=== PATIENT | male | born 1945 | race Caucasian/White ===

== ENCOUNTER 2017-05-21 06:55 | Day surgery (SDC) | payer MEDICARE, OTHER ==
[~2017-05-21] VITALS: Ht 190.5 cm; Wt 113.4 kg
[~2017-05-21 06:55] MED LIST: ALDACTONE25 MG PO; AMARYL2 MG PO; ANTIVERT25 MG PO; AZITHROMYCIN250 MG PO; BETAPACE AF80 MG PO; CALCITRIOL0.25 MCG PO; CITALOPRAM HBR20 MG PO; COREG CR40 MG PO; COUMADIN2.5 MG PO; COUMADIN5 M1 IV; COUMADIN5 MG; CRESTOR10 MG PO; CRESTOR20 MG PO; DEMADEX20 MG PO; DIOVAN HCT 3201 EACH PO; DIOVAN320 MG PO; DIOVAN40 MG PO; DIOVAN80 MG PO; ELIQUIS5 MG PO; FINASTERIDE5 MG PO; GUAIFENESIN-CO118 ML PO; HYDROCODON-ACE1 EA10 PO; LEVAQUIN500 MG PO; LEVAQUIN750 MG PO; MECLIZINE HCL25 MG PO; METOPROLOL TAR100 MG PO; NIFEDICAL XL30 MG PO; NIFEDIPINE ER90 M1 PO; NITROGLYCERIN0.4 MG SL; NORCO 5-325 TA1 EACH PO; NORCO 7.5-3251 EACH PO; OMEPRAZOLE20 MG PO; OXYCODONE HCL5 MG PO; POTASSIUM CHLO10 MEQ PO; PREDNISONE20 MG PO; PRILOSEC20 MG PO; PROMETHAZINE HC25 M1 PO; PROMETHAZINE-COD5 ML PO; QVAR7.3 G1 INH; SERTRALINE HCL50 MG PO; SOTALOL AF120 MG PO; SOTALOL80 M1 PO; SPIRONOLACTONE25 MG PO; TORSEMIDE20 MG; VITAMIN B-121000 MCG PO; XARELTO20 MG PO; ZITHROMAX250 MG PO; ZOFRAN4 MG PO
--- NOTE | 2017-05-21 08:25 | NUR ---
05/21/17 0825 Radha Rodriguez REPORT FROM [employer] SET UP OPERATOR.
--- NOTE | 2017-05-21 14:55 | NUR ---
PT IN FOR ROUTINE. HAS HAD NUMEROUS SCOPES BEFORE. WAS VERY RELAXED, RN CONCERNED THOUGH THAT SHE COULDN'T GET HIS IV SALINE TO RUN FAST ENOUGH. RN CLARISSA CHECKED SEVERAL TIMES. PT REQUESTED PRAYER, WILL FOLLOW NEEDED
--- NOTE | 2017-06-05 10:25 | OR ---
[facility] [address] [place], [place] [address] Signed DATE OF SERVICE: 05/21/2017 PREOPERATIVE DIAGNOSIS: Rectal bleeding. Multiple medical problems, including chronic anticoagulation with Eliquis for occult cerebrovascular accident x2. POSTOPERATIVE DIAGNOSIS: Extensive internal hemorrhoids. Polyps x4. PROCEDURE: Total colonoscopy to cecum with hot snare polypectomy x2. Cold snare polypectomy x1 and cold morcellation polypectomy x1. SURGEON: Veronica Aquino MD. ANESTHESIA: Intravenous sedation with propofol infusion, Veronica Anthony CRNA. PREOPERATIVE MEDICATIONS: Cefoxitin 2 g. INDICATION: This 70-year-old white man has a considerable number of medical problems. He is a patient of Dr. Rey. He has had rectal bleeding. He is chronically anticoagulated with Eliquis, having had 2 cerebrovascular accidents of unknown etiology and anti-coagulated on that basis. Additionally, he has had a right hip replacement. He has had left nephrectomy for neoplasm and has other medical problems. He is considered ASA class 4. He is admitted to undergo colonoscopy to better characterize the source of h is bleeding. He understands risks of bleeding, infection, and perforation related to colonoscopy and wished to proceed. FINDINGS: The prep was excellent. Complete colonoscopy was undertaken to the cecum. 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 There were 4 polyps in total, 2 in the cecum, 1 in the ascending colon, another in the transverse colon, all excised. The source of his bleeding almost certainly is significant internal hemorrhoidal changes. There is no sign of active bleeding at this time. PROCEDURE: The patient was brought to the endoscopy suite and placed in lateral decubitus position. Given intravenous propofol infusional sedation by the tieing machine operator with full cardiopulmonary monitoring. Underwent preoperative treatment with cefoxitin antibiotic. Digital rectal examination was normal. Electronically Signed By: VERONICA AQUINO MD 06/05/17 1025 PATIENT NAME: ANDREE DUNAWAY OPERATIVE REPORT DATE OF : 41 PHYSICIAN: VERONICA AQUINO MD REPORT #: [id number] REPORT IS CONFIDENTIAL AND NOT TO BE RELEASED WITHOUT AUTHORIZATION [facility] [address] [place], [place] [address] Signed An Olympus video colonoscope was passed in the rectum and manipulated throughout the colon noting a very good bowel prep. The scope was advanced to the cecum, where a prominent ileocecal valve was noted. 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 Full examination of the cecum showed 2 small polyps, they were 1 larger than the other both at least 5 mm in size. T h e smaller was excised with hot snare polypectomy technique as was the larger. Both were removed. Withdrawal of scope showed another mid ascending polyp about the same size, this 1 about a cm. As one of the polyps was being from the cecum, it was being pulled along through a Matias net. This polyp was grasped with the net and gently excised with no significant bleeding. The scope was withdrawn further and ultimately removed and the 2 polyps offloaded. Then another small polyp of the cecum had already been brought through the channel of the scope. The scope was reintroduced and passed ultimately to the cecum again, where the polypectomy site appeared to be hemostatic. Upon withdrawal of scope, in the mid transverse colon, there was a small polyp. This was excised with cold morcellation technique without problem. The remaining colon was reexamined once again showing no sign of polyps but retroflexed in the rectum confirmed sizable internal hemorrhoids. There was no sign of bleeding. The scope was removed. The patient was taken recovery in good condition. He tolerated the procedure well though he did have some bigeminy arrhythmia during the case without hemodynamic compromise. CONCLUDING DIAGNOSES: Polyps x4 all excised. Internal hemorrhoids. This represents most likely sources of his bleeding. PLAN: Recommend restarting Eliquis only after 6 days. He can continue with aspirin 81 mg a day in the meantime. We recommend Citrucel 1 tablespoon p.o. daily and bowel hygiene to include avoidance of prolonged sitting on the commode so as to diminish inner rectal pressure. If continued bleeding is noted, a surgical remedy may be required for his hemorrhoids. MD SCOTT Manzo/Lacho /[id number] Electronically Signed By: VERONICA AQUINO MD 06/05/17 1025 PATIENT NAME: ANDREE DUNAWAY OPERATIVE REPORT DATE OF : 41 PHYSICIAN: VERONICA AQUINO MD REPORT #: [id number] REPORT IS CONFIDENTIAL AND NOT TO BE RELEASED WITHOUT AUTHORIZATION [address] [address] Signed cc: Dr. Aniceto Rey Electronically Signed By: VERONICA AQUINO MD 06/05/17 1025 PATIENT NAME: ANDREE DUNAWAY OPERATIVE REPORT DATE OF : 41 PHYSICIAN: VERONICA AQUINO MD REPORT #: [id number] REPORT IS CONFIDENTIAL AND NOT TO BE RELEASED WITHOUT AUTHORIZATION
== END 2017-05-21 10:05 | disposition home or self-care (01) ==
LOC: OPS 06:55 → DS 06:55 → OPS 08:15 → DS 09:00 → OPS 09:00
PROVIDERS: Surgery
PROC: 0DBK8ZX Excision of Ascending Colon, Via Natural or Artificial Opening Endoscopic, Diagnostic (ICD-10-PCS; 2017-05-21)
PROC: 0DBL8ZX Excision of Transverse Colon, Via Natural or Artificial Opening Endoscopic, Diagnostic (ICD-10-PCS; 2017-05-21)
PROC: 0DBH8ZX Excision of Cecum, Via Natural or Artificial Opening Endoscopic, Diagnostic (ICD-10-PCS; principal; 2017-05-21 08:15)
DX: D12.0 Benign neoplasm of cecum (principal); D12.2 Benign neoplasm of ascending colon; D12.3 Benign neoplasm of transverse colon; K64.8 Other hemorrhoids; F32.9 Major depressive disorder, single episode, unspecified; E11.9 Type 2 diabetes mellitus without complications; I10 Essential (primary) hypertension; I48.91 Unspecified atrial fibrillation; G47.30 Sleep apnea, unspecified; Z86.010 Personal history of colon polyps; Z88.0 Allergy status to penicillin; Z88.2 Allergy status to sulfonamides; Z88.5 Allergy status to narcotic agent; Z87.891 Personal history of nicotine dependence; Z90.49 Acquired absence of other specified parts of digestive tract; Z96.653 Presence of artificial knee joint, bilateral; Z96.642 Presence of left artificial hip joint; Z90.5 Acquired absence of kidney; Z98.890 Other specified postprocedural states; Z79.899 Other long term (current) drug therapy; Z86.73 Personal history of transient ischemic attack (TIA), and cerebral infarction without residual deficits
CPT/HCPCS: 00810; 88305; J0694; J2704; J7120

== ENCOUNTER 2017-06-22 17:24 | Emergency (ER) | payer MEDICARE, OTHER ==
[~2017-06-22] VITALS: Ht 190.5 cm; Wt 113.4 kg
== END 2017-06-22 18:41 | disposition home or self-care (01) ==
LOC: ED 17:24
DX: S90.32XA Contusion of left foot, initial encounter (principal); I50.9 Heart failure, unspecified; Z85.528 Personal history of other malignant neoplasm of kidney; Z86.73 Personal history of transient ischemic attack (TIA), and cerebral infarction without residual deficits; Z87.891 Personal history of nicotine dependence; Z90.5 Acquired absence of kidney; Z90.49 Acquired absence of other specified parts of digestive tract; Z96.651 Presence of right artificial knee joint; Z88.0 Allergy status to penicillin; Z88.2 Allergy status to sulfonamides; Z88.1 Allergy status to other antibiotic agents; Z79.899 Other long term (current) drug therapy; Z79.84 Long term (current) use of oral hypoglycemic drugs; W22.8XXA Striking against or struck by other objects, initial encounter
CPT/HCPCS: 73610; 73630; 99283

== ENCOUNTER 2017-09-18 14:04 | Emergency (ER) | payer MEDICARE, OTHER ==
[~2017-09-18] VITALS: Ht 190.5 cm; Wt 113.4 kg
[2017-09-18] MEDS ORDERED: CARVEDILOL25 MG PO (14:30)
[2017-09-18] MEDS ORDERED: FUROSEMIDE40 MG PO (16:24)
[2017-09-18] MEDS ORDERED: KLOR-CON M2020 MEQ PO (16:24)
== END 2017-09-18 16:40 | disposition home or self-care (01) ==
LOC: ED 14:04
DX: I50.9 Heart failure, unspecified (principal); Z86.73 Personal history of transient ischemic attack (TIA), and cerebral infarction without residual deficits; Z90.5 Acquired absence of kidney; Z88.0 Allergy status to penicillin; Z88.2 Allergy status to sulfonamides; Z88.1 Allergy status to other antibiotic agents; Z85.528 Personal history of other malignant neoplasm of kidney; Z96.651 Presence of right artificial knee joint; Z79.899 Other long term (current) drug therapy; Z95.818 Presence of other cardiac implants and grafts
CPT/HCPCS: 71020; 80053; 83880; 85025; 99283

== ENCOUNTER 2017-11-21 00:52 | Observation (INO) | payer MEDICARE, OTHER ==
[~2017-11-21] VITALS: Ht 190.5 cm; Wt 115.7 kg
[~2017-11-21 00:52] MED LIST changes: +CARVEDILOL25 MG PO; +FUROSEMIDE40 MG PO; +KLOR-CON M2020 MEQ PO
[2017-11-21] MEDS ORDERED: CLEOCIN HCL150 MG PO (01:12)
[2017-11-21] MEDS ORDERED: FUROSEMIDE20 MG PO (01:13)
[2017-11-21] MEDS ORDERED: NITROGLYCERIN0.4 MG SL (01:14)
[2017-11-21] MEDS ORDERED: PROMETHAZINE-C118 ML PO (01:15)
[2017-11-21] MEDS ORDERED: SPIRONOLACTONE25 MG PO (01:17)
[2017-11-21] MEDS ORDERED: VALACYCLOVIR1000 MG PO (01:43)
[2017-11-21] MEDS ORDERED: TORSEMIDE20 MG PO (01:43)
--- NOTE | 2017-11-21 05:12 | NUR ---
PT ARRIVED TO ROOM 129 AT 0405. VERY DROWSY, RESPONDS TO TACTILE STIMULI ONLY. FLOSSY AT BEDSIDE TO PROVIDE PT H&P. DR SHRESTHA CALLED ON ADMIT TO UPDATE RE: PT BP/VS. CARDENE GTT STARTED AT 0432 AT 5MG/HR. PT VOMITED UPON ARRIVAL. CLEAR GREEN LIQUID, APPROXIMATELY 300ML. UP TO STAND AT BEDSIDE TO VOID NOW. UNSTEADY ON FEET. MISSED URINAL AND VOIDED ON PANTS AND FLOOR. SMALL/MED AMOUNT. O2 ON 2L NC. PT WITH INTERMITTENT APNEIC PERIODS. REPORTS PT ALSO HAS SLEEP APNEA. NON COMPLIANT WITH CPAP AT HOME. ALSO UNAWARE IF PT TAKING MEDICATIONS PRESCRIBED. PT WITH RECENT COLD, ALSO RECENT DIARRHEA EPISODE ON .
--- NOTE | 2017-11-21 06:35 | NUR ---
PT GTT DECREASED TO 2.5MG/HR AT 0600.
--- NOTE | 2017-11-21 07:21 | NUR ---
CARDENE GTT DECREASED TO 1.5MG/HR
--- NOTE | 2017-11-21 07:50 | NUR ---
UPON ENTERING ROOM, PATIENT IS ASLEEP. IS IN ROOM. PATIENT WOKE BRIEFLY, DENIES PAIN. IS W/O C/O NAUSEA. CARDINE GTT REMAINS AT 1.5 MG. SEE MONITOR PRINT OUT SHEET FOR FREQUENT VITAL SIGNS.
--- NOTE | 2017-11-21 08:50 | NUR ---
NICARDIPINE GTT TO OFF. PATIENT REMAINS AT BEDSIDE.
--- NOTE | 2017-11-21 10:45 | NUR ---
TOOK SNACK WELL. WILL DO ACCUCHEKS BEFORE LUNCH. DENIES PAIN. ROUTINE MEDS GIVEN. BP-131/65. RESTFUL.
--- NOTE | 2017-11-21 11:04 | NUR ---
SLEEPING, HOB ELEVATED. NO DISTRESS NOTED.
--- NOTE | 2017-11-21 13:05 | NUR ---
TYLENOL 500 MG PO GIVEN FOR HEADACHE.
--- NOTE | 2017-11-21 15:30 | NUR ---
PATIENT WISHES TO SIT IN CHAIR. ASSISTED PATIENT TO SIT AT BEDSIDE. IS VERY WEAK ATTEMPTED TO STAND, UNABLE. BACK TO BED. WHEN SITTING AT BEDSIDE NEEDED ASSIST OF 2 PEOPLE.
--- NOTE | 2017-11-21 16:15 | NUR ---
C/O INCREASE BURNETT PAIN. DR. SHRESTHA NOTIFIED. ORDERS RECIEVED.
--- NOTE | 2017-11-21 16:20 | NUR ---
TYLENOL 500 MG PO GIVEN, LR BOLUS 1000 ML HUNG.
--- NOTE | 2017-11-21 16:49 | NUR ---
CONTINUE TO C/O SEVERE HEADACHE. DAMP RAG APPLIED TO FOREHEAD.
--- NOTE | 2017-11-21 17:00 | NUR ---
STATES HE FEELS ALITTLE BETTER. ACCUCHECK 73. APPLE JUICE GIVEN. HAS BEEN USING URINAL WITH ASSIST TO VOID BETWEEN 125-150 ML OF URINE AT A TIME. DENIES PAINFUL URINATION.
--- NOTE | 2017-11-21 17:03 | NUR ---
URINE IS CONCENTRATED
--- NOTE | 2017-11-21 19:56 | NUR ---
PT RESTING WITH EYES CLOSED. REPORTS H/A LESS, NAUSEA GONE. VOIDED 200ML TO URINAL. BLADDER SCANNED POST VOID FOR 167ML. OFFERED 7-UP AND ICE CHIPS. REMAINS AT BEDSIDE. PT INSTRUCTED TO USE CALL LIGHT FOR ASSISTANCE.
--- NOTE | 2017-11-21 22:22 | NUR ---
UPDATED DR SHRESTHA RE: PT U/O AND FREQUENCY/BLADDER SCAN RESULTS, BP, BLOOD SUGAR.
--- NOTE | 2017-11-22 04:15 | NUR ---
PT USED CALL LIGHT FOR ASSISTANCE TO VOID. VOIDED 100ML TO URINAL. NEW IV PLACED IN LW. PT REPORTS FEELING BETTER. NO NAUSEA. NO H/A. EATING JELLO AND CRACKERS.
--- NOTE | 2017-11-22 09:00 | NUR ---
DR. SHRESTHA HERE TO SEE PATIENT. DISCHARGE ORDERS RECIEVED. TOOK BREAKFAST WELL.
[2017-11-22] MEDS ORDERED: POTASSIUM CHLO20 ME1 PO (09:50)
--- NOTE | 2017-11-22 10:20 | NUR ---
AMBULATED IN SOLIS. NURSE WITH PATIENT. PATIENT USING WALKER. TOLERATED WELL. DENIES DIZZINESS OR BURNETT. THEN TO CHAIR.
--- NOTE | 2017-11-22 12:00 | NUR ---
discharge instructions given with patient and patient understanding. TAKING LUNCH PRIOR TO DISCHARGE.
--- NOTE | 2017-11-22 12:10 | NUR ---
UPON STANDING TO AMBULATE TO W/C FOR DISCHARGE, PATIENT IS WITH DIZZINESS AND SOMEWHAT UNSTEADY ON FEET. ASSISTED TO CHAIR. BP-127/77. TALKED WITH PATIENT ABOUT NEED TO MOVE SLOW WHEN STANDING AND WALKING.
--- NOTE | 2017-11-22 14:01 | NUR ---
PT WAS DRESSED AND WAITNG FOR HIS TO COME AND PICK HIM UP. HE HAS BEEN DC'D. HE ADMITTED THAT HE WAS SCARED THIS PAST WEEKEND. PAIN WAS VERY INTENSE AND HE WAS AFRAID HE HAD HAD A STROKE. SEEMS CLEAR, HAD GOOD VISIT WITH PT-HE REQUESTED PRAYER. WILL FOLLOW NEEDED
--- NOTE | 2017-11-22 21:21 | EKG ---
[facility] [address] [facility] [place] [address] Signed Atrial fibrillation with premature ventricular or aberrantly conducted complexes Right bundle branch block Abnormal ECG No previous ECGs available Confirmed by HENRY SHRESTHA MD ([id number]) on 11/22/2017 9:21:08 PM Electronically Signed By: HENRY SHRESTHA MD 11/22/172120 PATIENT NAME: ANDREE DUNAWAY MIGUEL Electrocardiogram DATE OF : 41 PHYSICIAN: HENRY SHRESTHA MD REPORT #: [id number] REPORT IS CONFIDENTIAL AND NOT TO BE RELEASED WITHOUT AUTHORIZATION
== END 2017-11-22 12:35 | disposition home or self-care (01) ==
LOC: ED 00:52 → CCU 00:53
PROVIDERS: ADMIT Internal Medicine
DX: I16.0 Hypertensive urgency (principal); I50.32 Chronic diastolic (congestive) heart failure; I13.0 Hypertensive heart and chronic kidney disease with heart failure and stage 1 through stage 4 chronic kidney disease, or unspecified chronic kidney disease; N18.3 Chronic kidney disease, stage 3 (moderate); I48.2 Chronic atrial fibrillation; N40.0 Benign prostatic hyperplasia without lower urinary tract symptoms; I25.10 Atherosclerotic heart disease of native coronary artery without angina pectoris; E78.5 Hyperlipidemia, unspecified; K21.9 Gastro-esophageal reflux disease without esophagitis; F39 Unspecified mood [affective] disorder; Z88.1 Allergy status to other antibiotic agents; Z95.5 Presence of coronary angioplasty implant and graft; Z88.0 Allergy status to penicillin; Z88.2 Allergy status to sulfonamides; Z79.2 Long term (current) use of antibiotics; Z79.84 Long term (current) use of oral hypoglycemic drugs; Z79.02 Long term (current) use of antithrombotics/antiplatelets; Z79.899 Other long term (current) drug therapy; Z86.73 Personal history of transient ischemic attack (TIA), and cerebral infarction without residual deficits; Z85.528 Personal history of other malignant neoplasm of kidney; Z90.5 Acquired absence of kidney
CPT/HCPCS: 51798; 70450; 80053; 81001; 83735; 85025; 93005; 93010; 96361; 96365; 96366; 96374; 96375; 99285; G0378; J1200; J2270; J2405; J2550; J2765; J7030; J7120

== ENCOUNTER 2018-08-02 20:49 | Inpatient (IN) | payer MEDICARE, OTHER ==
[~2018-08-02] VITALS: Ht 190.5 cm; Wt 116.3 kg
[~2018-08-02 20:49] MED LIST changes: +ABILIFY5 MG PO; +CLEOCIN HCL150 MG PO; +COZAAR100 MG PO; +FUROSEMIDE20 MG PO; +HYDRALAZINE HCL25 MG PO; +POTASSIUM CHLO20 ME1 PO; +PROMETHAZINE-C118 ML PO; +TORSEMIDE20 MG PO; +TORSEMIDE5 MG PO; +VALACYCLOVIR1000 MG PO
--- NOTE | 2018-08-02 23:30 | NUR ---
PT TO THE FLOOR. PT AMBULATED FROM STRETCHER TO BED. ACCOMPANIED BY FAMILY MEMBER. PT AOX4, APPROPRIATE, CALM. ON 2LNC. PT DENIES ANY SOB/CP. EXP. WHEEZES NOTED IN ALL LUNG SOUNDS. FAINT CRACKLES IN BASES. UPPER AIRWAY CONGESTION W/ OCCASIONAL WET COUGH. SPUTUM THICK, YELLOW. BT ACTIVE, ABD NONTENDER. HEART SOUNDS REGULAR. PT STATES THAT HE IS FEELING WARM. COLD WASH CLOTH PLACED ON HEAD FOR COMFORT. T: 98.2. VSS. IV SL. QUESTIONS ANSWERED. PT ORIENTED TO ROOM. FALL PRECAUTIONS IN PLACE. FAMILY REMAINS IN ROOM. CALL LIGHT WITHIN REACH. NO REQUESTS AT THIS TIME.
--- NOTE | 2018-08-03 01:00 | NUR ---
PT STATES HE IS FEELING NAUSEOUS. ACTIVELY VOMITING X3. MD CALLED FOR ANTINAUSEA MEDICATION. NEW ORDERS. SEE EMAR. PRN NAUSEA MEDICATION GIVEN. PT TOLERATED WELL. PT SLEPING NOW. CALL LIGHT WITHIN REACH. NO NEEDS AT THIS TIME.
--- NOTE | 2018-08-03 03:00 | NUR ---
PT RESTING IN BED. LS EXP WHEEZES, CONGESTED UPPER AIRWAY, CONGESTED OCCASIONAL COUGH PRESENT. PT DENIES SOB/CP. DENIES ANY PAIN. DENIES N/V. STATES HE FEELS MUCH BETTER. BT ACTIVE. ABD NONTENDER, PULSES EQUAL BILATERALLY. AOX4, APPROPRIATE. NO NEEDS AT THIS TIME. CALL LIGHT WITHIN REACH. FALL PRECAUTIONS IN PLACE. O2 @ 2LNC, IV RUNNING WNL.
--- NOTE | 2018-08-03 05:31 | NUR ---
PT CAME TO FLOOR LAST NIGHT AFTER FEELING NAUSEOUS AND VOMITING IN ED. WITH ELEVATED TEMP. PT AFEBRILE, T: 98.6, ON 2LNC DENIES SOB/CP. LS EXP. WHEEZES, UPPER AIRWAY CONGESTION, THICK YELLOW SPUTUM NOTED W/OCCASIONAL COUGH. RT NEB TREATMENTS. PT DID HAVE 1 EPISODE OF N/V. PRN IV NAUSEA MEDS GIVEN. NO NAUSEA SINCE THEN. NO PAIN. ABD NONTENDER. NO BM THIS SHIFT. PT AOX4, PLEASANT. BURLESON IN PLACE. URINE OUTPUT QS.
--- NOTE | 2018-08-03 06:55 | NUR ---
IN ROOM TO ADMIN MORNING ABX. PT OUT OF BED FOR DAILY WEIGHT. TOLERATED STANDING AT BEDSIDE WELL. NO C/O DIZZINESS OR LIGHT HEADEDNESS. DENIES ANY PAIN. DENIES SOB. CALL LIGHT WITHIN REACH. NO NEEDS AT THIS TIME.
--- NOTE | 2018-08-03 07:01 | NUR ---
RECIEVED REPORT FROM ELIZABETH ADAMS. PT SLEEPING AT THIS TIME. 2L OXYGEN NC. IVF AND ABX INFUSING AT THIS TIME. BURLESON IN PLACE. ADA, 1800 MAR DIET.
--- NOTE | 2018-08-03 08:20 | NUR ---
ASSESSMENT COMPLETE. EXPIRATORY WHEEZE AND RHONCHI THROUGHOUT ALL LOBES. 2 L OXYGEN VIA NC, SATURATIONS WNL. IVF AND ABX INFUSING WNL. IV SITES FLUSH WELL.RT IN ROOM, BREATHING TX ADMINISTERED. PT REPORTS PRODUCTIVE COUGH WITH BROWNISH SPUTUM. BURLESON DRAINING CONCENTRATED URINE. MORNING MEDICATIONS ADMINISTERED. ICE WATER AND BLANKET GIVEN PER PT REQUEST. CALL LIGHT NEXT TO PT. PT AFEBRILE THIS MORNING.
--- NOTE | 2018-08-03 09:14 | NUR ---
PATIENT RESTING IN BED. ICE WATER GIVEN. CALL LIGHT WITHIN REACH. NO OTHER NEEDS AT THIS TIME.
--- NOTE | 2018-08-03 10:38 | NUR ---
IV BOLUS INFUSING AT THIS TIME. PT LAYING IN BED AWAKE. NO REQUESTS AT THIS TIME. CALL LIGHT NEXT TO PT.
--- NOTE | 2018-08-03 10:41 | NUR ---
Mendez drained, 50 ml unrine, yellow, no odor or cloudyness noted. Mendez balloon deflated, 10 ml fluid from peteron, pt denies pain, mendez catheter ANUJA'd. RN present for this intervention.
--- NOTE | 2018-08-03 12:44 | NUR ---
PT REQUESTED TYLENOL FOR BODY ACHES. DR. MORFIN CALLED, TELEPHONE ORDER RECIEVED FOR PRN PAIN MEDICATION, REPEATED BACK.
--- NOTE | 2018-08-03 12:53 | NUR ---
IN ROOM TO ADMINISTER PRN PAIN MEDICATIONS FOR 5/10 BODY ACHES. ASSESSMENT COMPLETE. EXPIRATORY WHEEZE AND RHONCHI THROUGHOUT ALL LOBES. 2 L OXYGEN VIA NC, SATURATIOINS WNL. NO REQUESTS AT THIS TIME. WATER AT BEDSIDE, INF INFUSING WNL. CALL LIGHT NEXT TO PT.
--- NOTE | 2018-08-03 13:14 | NUR ---
PATIENT RESTING IN BED. FAMILY IN ROOM. VITALS AND I&O DONE. ICE WATER GIVEN. O OTHER NEEDS AT THIS TIME.
--- NOTE | 2018-08-03 13:46 | NUR ---
IN ROOM TO BLADDER SCAN PT, 52 ML. PT ENCOURAGED PO INTAKE. WATER AT BEDSIDE. CALL LIGHT NEXT TO PT.
--- NOTE | 2018-08-03 14:30 | NUR ---
PT SITTING IN BED, ROSA ELENA DISCOURAGED HE IS HERE. HE STATED PNEU. SEEMS TO PLAGUE HIM. GOOD DISCUSSION, OFFERED G.POST MAG AND OFFERED A PRAYER. WILL FOLLOW NEEDED
--- NOTE | 2018-08-03 14:49 | EKG ---
[facility] [address] [facility] [place], [place] [address] Signed Atrial fibrillation with a competing junctional pacemaker Right bundle branch block Abnormal ECG When compared with ECG of 21-NOV-2017 02:10, Questionable change in QRS axis Confirmed by FIONA MORFIN DO ([id number]) on 08/03/2018 2:49:10 PM Electronically Signed By: FIONA MORFIN DO 08/03/18 1449 PATIENT NAME: ANDREE DUNAWAY Electrocardiogram DATE OF : 41 PHYSICIAN: FIONA MORFIN DO REPORT #: [id number] REPORT IS CONFIDENTIAL AND NOT TO BE RELEASED WITHOUT AUTHORIZATION
--- NOTE | 2018-08-03 15:22 | NUR ---
IN ROOM TO ADMINISTER ABX. PT AWAKE LAYING IN BED. WHEN ASKED HOW HE FELT, HE STATED, "HES FELT BETTER". ABX INFUSING WNL. PT BOOSTED UP IN HIS BED. ICE WATER AT BEDSIDE.
[2018-08-03] MEDS ORDERED: DEMADEX20 MG PO (16:22)
--- NOTE | 2018-08-03 16:23 | NUR ---
Medications reconciled using pharmacy records and patient interview
--- NOTE | 2018-08-03 16:39 | NUR ---
IN ROOM TO COMPLETE ASSESSMENT. SATURATIONS WNL ON 1 L NC. EXPIRATORY WHEEZE AND RHONCHI THROUGHOUT ALL LOBES. CORNET AND IS AT BEDSIDE. IV ABX INFUSING WNL. NO NEEDS AT THIS TIME, CALL LIGHT NEXT TO PT.
--- NOTE | 2018-08-03 17:46 | NUR ---
PATIENT RESTING IN BED. IN ROOM. VITALS AND I&O DONE. PATIENT COMPLAINS ABOUT HEADACHE AND COLD. HIGH RESPIRATIONS AND LOW OXIGEN. RN NOTIFIED. CALL LIGHT WITHIN REACH. NO OTHER NEEDS AT TIME.
--- NOTE | 2018-08-03 18:06 | NUR ---
PT HAD EXP WHEEZES THROUGHOUT SHIFT. 1-2 LITERS NC, CONTINUOUS PULSE OX. ALERT AND ORIENTED X4 THROUGHOUT SHIFT. BURLESON D/C. OLIGURIC THROUGHOUT SHIFT. ENCOURAGED PO FLUIDS, BOLUS X2 ADMINISTERED. ABX ADMINISTERED SCHEDULED. AFEBRILE THROUGHOUT SHIFT. 1-2 SBA WITH AMBULATION. 2 IV SITES, ABX INFUSING AT THIS TIME. USES CALL LIGHT APPROPRIATELY. PRN PAIN MEDICATIONS ADMINISTERED X1. ADA, 1800 CALORIE DIET.
--- NOTE | 2018-08-03 18:33 | NUR ---
MD NOTIFIED OF PTS TEMP 100.6, TACHYPNIC AT 28 BPM, PT NOT FEELING WELL. PRN TYLENOL ADMINISTERED. NO NEW ORDERS AT THIS TIME.
--- NOTE | 2018-08-03 18:50 | NUR ---
IN ROOM TO CHECK ON PT. PT STATES "HE FEELS WORSE THAN YESTERDAY". COOL CLOTH GIVEN TO PT. CALL LIGHT NEXT TO PT.
--- NOTE | 2018-08-03 19:05 | NUR ---
PT APPEARS TO BE SLEEPING IN BED. ON 2LNC, O2 SAT 93%, HR 77. NO NEEDS AT THIS TIME. CALL LIGHT WITHIN REACH.
--- NOTE | 2018-08-03 19:40 | NUR ---
CALL LIGHT ANSWERED, IV CEFEPIME INFUSION COMPLETE, IV SALINE LOCKED WNL, GOOD BLOOD RETURN. PT ASSISTED TO REPOSITION WITH 2 RN ASSIST. BREATHING LABORED, SPO2 WNL ON 2L OXYGEN BY NC. PT ENCOURAGED TO DRINK WATER, USE IS. CALL LIGHT IN REACH.
--- NOTE | 2018-08-03 21:14 | NUR ---
MD NOTIFIED OF PT'S C/O RESTLESSNESS WELL BACK PAIN AND INABILITY TO SLEEP. PT REMAINS AFEBRILE T: 98.4, RR: 26, PT'S URINE OUTPUT 55 MLS IN LAST THREE HOURS, MD NOTIFIED. PT REMAINS ON 2LNC WITH O2 SAT AT 94%. PT STATES HE TAKES TYLENOL WITH CODEINE AT HOME FOR CHRONIC BACK PAIN WELL MELATONIN FOR SLEEP. MD NOTIFIED. NEW ORDERS RECIEVED. PT RESTING IN BED. CALL LIGHT WITHIN REACH.
--- NOTE | 2018-08-03 21:36 | NUR ---
IN ROOM TO ADMIN EVENING MEDS. SHIFT ASSESSMENT COMPLETE. PT AOX4, PLEASANT. PT STATES THAT HE HAS BEEN FEELING RESTLESS, IS HAVING BACK PAIN OF 8/10. PT GIVEN PRN PAIN MEDICATION PER EMAR. PT ALSO GIVEN PRN MELATONIN FOR SLEEP. PT'S LS COURSE WITH WHEEZES THROUGHOUT. ON 2LNC. O2 SAT 93%. DENIES SOB/CP. BT ACTIVE, ABD NONTENDER. PT STATES HE DID HAVE A BM EARLIER TODAY. NO C/O N/V/D. HEART SOUNDS REGULAR. VSS. PULSES EQUAL THROUGHOUT. PT AMBULATED FROM BED TO BSC AND BACK AGAIN WITH 1 PERSON PIVOT. PT A LITTLE UNSTEADY ON HIS FEET. SLOW TO FOLLOW DIRECTIONS. DENIES LIGHT HEADEDNESS OR DIZZINESS WITH STANDING. NO NEEDS AT THIS TIME. HYDRATION AT BEDSIDE. CALL LIGHT WITHIN REACH. URINAL AT BEDSIDE.
--- NOTE | 2018-08-03 22:02 | NUR ---
ROUNDED CHARGE. PATIENT MOVED TO NEW HOSPITAL BED FOR COMFORT. PATIENT DENIES ANY COMMNETS, QUESTIONS, OR CONCERNS. NO NEEDS NOTED. RN IN ROOM. CALL LIGHT IN REACH.
--- NOTE | 2018-08-03 22:48 | NUR ---
IN PT ROOM FOR IV ANTIBIOTIC ADMINISTRATION, PT RATES PAIN 4/10 IN BACK AND HEAD, RESTING IN BED, SPO2 WNL ON 2L OXYGEN BY NC. NO REQUESTS AT THIS TIME, PO FLUIDS IN REACH, CALL LIGHT NEXT TO PT.
--- NOTE | 2018-08-04 00:03 | NUR ---
IN ROOM TO CHECK ON PT, PT LYING IN BED, UNABLE TO SLEEP DUE TO IV PUMP, EAR PLUGS GIVEN TO PT AND PT APPLIED AT THIS TIME. IVF BOLUS COMPLETE AT THIS TIME, IV ANTIBIOTIC INFUSING WNL. CALL LIGHT IN REACH. NO ADDL NEEDS AT THIS TIME.
--- NOTE | 2018-08-04 01:45 | NUR ---
PT REPOSITIONED IN BED FOR COMFORT. DENIES ANY PAIN AT THIS TIME OR ANY NEED FOR PRN PAIN MEDICATION. DENIES SOB. LS COURSE, EXP WHEEZES. HYDRATION AT BEDSIDE. IV RUNNING WNL. CALL LIGHT WITHIN REACH, NO NEEDS AT THIS TIME.
--- NOTE | 2018-08-04 02:02 | NUR ---
IN PT ROOM TO EMPTY URINAL, 125 CONCENTRATED URINE EMPTIED. PT AWAKENS EASILY, LYING IN BED, IV ANTIBIOTICS INFUSING WNL. UPDATED ON PT'S URINE OUTPUT LAST FOUR HOURS AFTER IVF BOLUS, NO NEW ORDERS. WILL FOLLOW AM LABS.
--- NOTE | 2018-08-04 03:47 | NUR ---
PT APPEARS TO BE ASLEEP. O2 SAT 96% ON 2LNC. HR 70'S. IV RUNNING WNL. CALL LIGHT WITHIN REACH. HYDRATION AT BEDSIDE.
--- NOTE | 2018-08-04 04:37 | NUR ---
IN ROOM TO CHECK ON PT, IV SALINE LOCKED. PT APPEARS TO BE SLEEPING, BREATHING NON-LABORED, SPO2 WNL ON 2L OXYGEN BY NC, PT SNORING. CALL LIGHT NEXT TO PT.
--- NOTE | 2018-08-04 05:10 | NUR ---
NEW ORDERS FOR PRN PAIN MEDICATION WELL PRN SLEEP MEDICATION AT BEGINNING OF SHIFT RELATED TO BACK/BURNETT PAIN OF 06/10. PRN PAIN MEDICATION GIVEN 1X THIS SHIFT. NO FURTHER C/O PAIN. PT SLEPT MOST OF NIGHT AFTER PRN SLEEP MED GIVEN. LS REMAIN COURSE W/WHEEZES. ON 2LNC, O2 SAT >95%. DENIES SOB/CP. 2 PERSON ASSIST. NO N/V THIS SHIFT. VSS. AFEBRILE.
--- NOTE | 2018-08-04 06:29 | NUR ---
PT UP FOR DAILY WEIGHT. TOLERATED STANDING AT THE BEDSIDE WELL. C/O SLIGHT SOB WITH STANDING. PT BACK TO BED. VSS. ON 2LNC. O2 SAT >95%. DENIES ANY PAIN. CALL LIGHT WITHIN REACH. NO NEEDS AT THIS TIME.
--- NOTE | 2018-08-04 07:02 | NUR ---
RECEIEVED REPORT FROM ELIZABETH ADAMS. PT SLEEPING AT THIS TIME. CPOX- SATURATIONS WNL ON 2 L OXYGEN NC. IV SALINE LOCKED. URINE OUTPUT LOW THROUGHOUT PREVIOUS SHIFT. CALL LIGHT NEXT TO PT.
--- NOTE | 2018-08-04 07:51 | NUR ---
Patient resting in bed, face washed wasnt ready for Breakfast. freash water given, call light in reach, no other needs at this time.
--- NOTE | 2018-08-04 08:30 | NUR ---
ASSESSMENT COMPLETE. PT SLEEPING, AWAKENS EASY. IV SALINE LOCKED, FLUSHES WELL. EXPIRATORY WHEEZE THROUGHOUT ALL LOBES. CPOX WNL ON 2 L OXYGEN NC. CBG 229, SS INSULIN TO BE ADMINISTERED. BREAKFAST AT BEDSIDE. NO REQUESTS AT THIS TIME. CALL LIGHT NEXT TO PT.
--- NOTE | 2018-08-04 10:30 | NUR ---
PT SLEEPING. TALKED TO PTS . SHE IS CONCERNED OF PTS 10 POUND WEIGHT GAIN, LETHARGY, AND DIURETIC. MD NOTIFIED OF CONCERNS.
--- NOTE | 2018-08-04 10:31 | NUR ---
PATIENT IS IN BED RESTING. REFUSED HIS BREAKFAST. IS IN THE ROOOM WITH HIM, CALL LIGHT IN REACH WATER GIVEN , NO OTHER NEEDS AT THIS TIME.
--- NOTE | 2018-08-04 10:33 | NUR ---
PATIENT IS IN BED RESTING, REFUSED BREAKFAST. IS IN ROOM WITH HIM. FRESH WATER GIVEN, CALL LIGHT IN REACH . NO OTHER NEEDS AT THIS TIME.
--- NOTE | 2018-08-04 12:19 | NUR ---
ANSWERED CALL LIGHT. PT UP TO COMMODE. TACHYPNIC. RETURNED TO BED. CALL LIGHT NEXT TO PT.
--- NOTE | 2018-08-04 17:20 | NUR ---
ANSWERED CALL LIGHT. PT FINISHED WITH DINNER. PT REQUESTED MILK TO BE PUT IN FRIDGE. IN ROOM. NO REQUESTS AT THIS TIME, CALL LIGHT NEXT TO PT.
--- NOTE | 2018-08-04 17:51 | NUR ---
PT WAS AFEBRILE THROUGHOUT SHIFT. EXPIRATORY WHEEZES AND RHONCHI. CPOX, SATURATIONS WNL ON 2 L NC. PT RECIEVED IV LASIX TODAY. GOOD URINE OUTPUT. POOR APPETITE. IV SALINE LOCKED. UNABLE TO DRAW LABS THIS AFTERNOON. SS INSULIN ADMINISTERED ORDERED. PT DID NOT WORK WITH P.T HE FELT NAUSEOUS WHEN HE STOOD UP.
--- NOTE | 2018-08-04 17:54 | NUR ---
PATIENT RESTING IN BED ,WAS ABLE TO EAT TO NIGHT, FEELING BETTER, WIFES IN THE ROOM. CALL LIGHT IN REACH. FRESH WATER , NO OTHERE NEEDS AT THIS TIME.
--- NOTE | 2018-08-04 18:50 | NUR ---
IN ROOM TO CHECK ON PT. PT AWAKE LAYING IN BED. NO REQUESTS AT THIS TIME. CALL LIGHT NEXT TO PT.
--- NOTE | 2018-08-04 20:03 | NUR ---
VITALS AND BLOOD SUGAR DONE AND CHARTED. ICE FOR WATER GIVEN. PICKED UP GARBAGE IN THE ROOM. BEDSIDE TABLE AND CALL LIGHT IN REACH.
--- NOTE | 2018-08-04 21:00 | NUR ---
CHARGE NURSE ROUNDING NOTE: SITTING EDGE OF BED, O2 2L NC IN PLACE, NO C/O PAIN, CALL LIGHT AT BEDSIDE
--- NOTE | 2018-08-04 22:11 | NUR ---
I&os DONE AND CHARTED.
--- NOTE | 2018-08-04 23:00 | NUR ---
PATIENT'S EVENING ASSESSMENT DONE AND EVENING MEDS GIVEN. PATIENT WATCHING TV.
--- NOTE | 2018-08-05 | NUR ---
PER PT REQUEST I EMPTIED HIS URINAL. PT NEEDS NOTHING MORE AT THIS TIME.
--- NOTE | 2018-08-05 00:49 | NUR ---
PATIENT RESTING QUIIETLY SUPINE. RESPIRATIONS REGULAR AND EVEN AT 16 AND PATIENT'S EYES ARE CLOSED.
--- NOTE | 2018-08-05 00:58 | NUR ---
PATIENT JUST CALLED AND HAD ME EMPTY 250MLS OF URINE FROM HIS URINAL.
--- NOTE | 2018-08-05 03:15 | NUR ---
PATIENT RESTING QUIETLY ON 2L/NC, SATS 99% AND HR=66. RESPIRATIONS REGULAR AND EVEN AT A RATE OF 16.
--- NOTE | 2018-08-05 05:21 | NUR ---
PATIENT HAS HAD A FAIRLY GOOD NIGHT SATS HAVE BEEN MAINTAINED IN THE 90'S ON 2L/NC. PATIENT HAS BEEN HAVING BREATHING TREATMENTS AND HAS BEEN USING HIS URINAL WITH OUT DIFFICULTY AND TAKING PO FLUIDS.
--- NOTE | 2018-08-05 06:13 | NUR ---
VITALS AND I&OS DONE AND CHARTED. DAILY WEIGHT DONE AND CHARTED. BEDSIDE TABLE AND CALL LIGHT IN REACH. FRESH ICE WATER GIVEN
--- NOTE | 2018-08-05 07:11 | NUR ---
PT RESTING IN BED, WATCHING TV. MENTIONED THAT HE IS FEELING SO MUCH BETTER THAN YESTERDAY. EXTENDED A BLESSING, WILL FOLLOW NEEDED
--- NOTE | 2018-08-05 07:21 | NUR ---
RECIEVED BESIDE REPORT FROM ELIZABETH LAZCANO. NATALY, SN ALSO ASSIGNED TO PT. PT SLEEPING, APPEARS COMFORTABLE. O2 ON AT 2L NC. VOIDS WELL IN URINIAL, CALLS APROPRIATLY. YANNI JUNIOR.
--- NOTE | 2018-08-05 07:58 | NUR ---
Patient was in bed, face washed, setting up in bed watching TV and eating breakfast, fresh water given, call light in reach, no othere needs at this time.
--- NOTE | 2018-08-05 09:16 | NUR ---
COMMERCIAL DRAFTER AND INSTRUTOR IN TO GIVE EDUCTAION ON IS. PT RECIEVED INFO WELL.
--- NOTE | 2018-08-05 10:37 | NUR ---
PT REQUESTS NOT TO BE BOTHERED UNTIL 1100AM. SN AWARE AND WILL ADMINISTER FLU SHOT AT 1100A. PT HAS NO COMPLAINTS OR CONCERNS AT THIS TIME.
--- NOTE | 2018-08-05 12:09 | NUR ---
PT RESTING, FEELING BETTER BUT DID NOT HAVE THE BEST NIGHT'S SLEEP. PT HOPES TO GO HOME TOMORROW. GAVE PT A GUIDEPOST AND EXTENDED A BLESSING. WILL FOLLOW NEEDED
--- NOTE | 2018-08-05 12:33 | NUR ---
SN REPORTED TO RN PT HAD QUESTIONS RE: NEW ORDER OF LOSARTAN. RN DISCUSSED PT CONCERNS THAT HE NEEDS A NEW SCRIPT AT DISCHARGE FOR THIS MEDICATION. HE IS OUT AT HOME. WILL ADVISE .
--- NOTE | 2018-08-05 15:00 | NUR ---
PATIENT UP TO SHOWER 1PA W WALKER TO BATH ROOM FRESH WATER, CALL LIGHT IN REACH, NO OTHER NEEDS AT THIS TIME.
--- NOTE | 2018-08-05 17:07 | NUR ---
PT UP TO SHOWER, AMBULATED IN SOLIS WITH PT. ROOM AIR TRIAL, MAINTAIN O2 AT 90%. PT REPORTS FEELING "NOT MUCH OXYGEN" TODAY. LUNGS ARE VERY NOISY. PT EATING WELL, TOLERATING PO FLUIDS.
--- NOTE | 2018-08-05 17:20 | NUR ---
HELPED SET HIM UP FOR DINNER. AFTER THE OTHER CNA2 DID HIS BLOOD SUGAR CHECK.
--- NOTE | 2018-08-05 20:18 | NUR ---
VITALS AND I&OS DONE AND CHARTED. FRESH WATER GIVEN. BEDSIDE TABLE AND CALL LIGHT IN REACH. INFORMED RN NENO OF HIGH B/P AND TEMP. PT NEEDS NOTHING ELSE AT THIS TIME.
--- NOTE | 2018-08-05 21:00 | NUR ---
BS WAS 384 WHICH REQUIRED 11 UNITS OF HUMOLOG INSULIN. MD MORFIN WAS CALLED PER E-MAR ORDER, WILL SPOT-CHECK PT AGAIN AT 0000. WILL CONTINUE TO MONITOR. PT HAS BEEN ASYMPTOMATIC.
--- NOTE | 2018-08-05 21:32 | NUR ---
PER PT REQUEST I GAVE HIM SOME SHERBERT ICE CREAM. PT ASKED FOR VANILLA WAFERS ALSO. WE DONT HAVE ON THE FLOOR, I CALLED IPHONE DEVELOPER TO GET THEM.
--- NOTE | 2018-08-05 21:54 | NUR ---
CHARGE NURSE ELIZABETH DUFFY TAKING PATIENT FOR A WALK AROUND THER MED/SURG FLOOR.
--- NOTE | 2018-08-05 22:05 | NUR ---
AMBULATED PT IN HALLWAY. PT WALKED ENTIRE LENGTH OF HALLWAY WITH WALKER. PT HAD TO TAKE 3 BREAKS SITTING DOWN IN THE WHEELCHAIR. PT OVERALL DID VERY WELL.
--- NOTE | 2018-08-05 22:40 | NUR ---
PATIENT BACK IN BED RESTING QUIETLY WATCHING TV.
--- NOTE | 2018-08-05 23:41 | NUR ---
PER PT REQUEST I EMPTIED HIS URINAL AND GOT FRESH WATER FOR HIM.
--- NOTE | 2018-08-06 00:15 | NUR ---
CALLED WITH PATIENT'S RECHECKED BLOOD SUGAR OF 297. ORDERS WERE GIVEN AND REPEATED BACK TO GIVE PATIENT HIS REGULAR SLIDING SCALE DOSE OF 7 UNITS OF SS INSULIN. THIS WAS DONE.
--- NOTE | 2018-08-06 01:35 | NUR ---
PATIENT RESTING ON HIS RIGHT SIDE RESPIRATIONS 16, PULSE OX 98% AND HR=66, EYES CLOSED.
--- NOTE | 2018-08-06 03:29 | NUR ---
PATIENT RESTING SUPINE WITH HEAD OF BED SLIGHTLY ELEVATED ON 2L/NC SATS 96% AND HR=68. RESPIRATIONS REGULAR AND EVEN AT A RATE OF 16.
--- NOTE | 2018-08-06 07:02 | NUR ---
RECIEVED REPORT FROM ELIZABETH LAZCANO. PT SLEEPING, O2 IN PLACE. PT DESATS WHILE SLEEPING. PT WOULD LIKE TO DC TODAY.
[2018-08-06] MEDS ORDERED: DOXYCYCLINE HY100 MG PO (08:56)
[2018-08-06] MEDS ORDERED: VENTOLIN HFA18 GM INH (09:00)
[2018-08-06] MEDS ORDERED: SYMBICORT 16010.2 GM INH (09:05)
[2018-08-06] MEDS ORDERED: ADVAIR 250-501 EACH INH (10:40)
--- NOTE | 2018-08-06 11:17 | NUR ---
Discharge medication counseling provided. MDI spacer offered but declined by patient. Symbicort inhaler was not covered by insurance, so it was changed to Advair 250/50.
== END 2018-08-06 11:42 | disposition home or self-care (01) | DRG 193 ==
LOC: ED 20:49 → MS 23:05
PROVIDERS: ADMIT Student in an Organized Health Care Education/Training Program
DX: J15.7 Pneumonia due to Mycoplasma pneumoniae (principal); J96.21 Acute and chronic respiratory failure with hypoxia; N17.9 Acute kidney failure, unspecified; I13.0 Hypertensive heart and chronic kidney disease with heart failure and stage 1 through stage 4 chronic kidney disease, or unspecified chronic kidney disease; I50.32 Chronic diastolic (congestive) heart failure; E11.22 Type 2 diabetes mellitus with diabetic chronic kidney disease; N18.9 Chronic kidney disease, unspecified; K21.9 Gastro-esophageal reflux disease without esophagitis; N40.0 Benign prostatic hyperplasia without lower urinary tract symptoms; R41.0 Disorientation, unspecified; I48.0 Paroxysmal atrial fibrillation; G47.33 Obstructive sleep apnea (adult) (pediatric); Z23 Encounter for immunization; Z90.5 Acquired absence of kidney; Z66 Do not resuscitate; Z79.84 Long term (current) use of oral hypoglycemic drugs; Z79.02 Long term (current) use of antithrombotics/antiplatelets; Z79.899 Other long term (current) drug therapy; Z88.1 Allergy status to other antibiotic agents; Z88.0 Allergy status to penicillin; Z88.2 Allergy status to sulfonamides
CPT/HCPCS: 36415; 51702; 71045; 80048; 80053; 81001; 82607; 83605; 83735; 83880; 84443; 85025; 85610; 85730; 87040; 87070; 87205; 87449; 87502; 93005; 93010; 94640; 94668; 94762; 96374; 96375; 97116; 97162; 97530; 99284; G0008; J0456; J0692; J0696; J1815; J2405; J2550; J7120; J7512

== ENCOUNTER 2019-05-05 11:04 | Emergency (ER) | payer MEDICARE, OTHER ==
[~2019-05-05] VITALS: Ht 190.5 cm; Wt 116.3 kg
[~2019-05-05 11:04] MED LIST changes: +ADVAIR 250-501 EACH INH; +DOXYCYCLINE HY100 MG PO; +SYMBICORT 16010.2 GM INH; +VENTOLIN HFA18 GM INH
[2019-05-05] MEDS ORDERED: ZOLOFT50 MG PO (11:37)
[2019-05-05] MEDS ORDERED: IRON325 M1 PO (11:38)
[2019-05-05] MEDS ORDERED: MELATONIN5 M2 PO (11:39)
[2019-05-05] MEDS ORDERED: ZITHROMAX250 MG PO (14:13)
[2019-05-05] MEDS ORDERED: LIDOCAINE HCL100 ML MT (14:13)
--- NOTE | 2019-05-05 15:36 | EKG ---
[facility] [address] [place] [address] Signed Atrial fibrillation with slow ventricular response with a competing junctional pacemaker with premature ventricular or aberrantly conducted complexes Abnormal ECG When compared with ECG of 02-AUG-2018 20:52, Right bundle branch block is no longer present Confirmed by HENRY SHRESTHA MD ([id number]) on 05/05/2019 3:35:50 PM Electronically Signed By: HENRY SHRESTHA MD 05/05/19 1536 PATIENT NAME: EMELYNANDREE Electrocardiogram DATE OF : 41 PHYSICIAN: HENRY SHRESTHA MD REPORT #: [id number] REPORT IS CONFIDENTIAL AND NOT TO BE RELEASED WITHOUT AUTHORIZATION
[2019-05-09] MEDS ORDERED: GLIMEPIRIDE4 MG PO (08:13)
[2019-05-09] MEDS ORDERED: ZANTAC150 MG PO (15:23)
[2019-05-09] MEDS ORDERED: CHLORTHALIDONE25 MG PO (15:24)
== END 2019-05-05 15:07 | disposition home or self-care (01) ==
LOC: ED 11:04
DX: J15.9 Unspecified bacterial pneumonia (principal); I11.0 Hypertensive heart disease with heart failure; I50.9 Heart failure, unspecified; Z95.5 Presence of coronary angioplasty implant and graft; Z86.73 Personal history of transient ischemic attack (TIA), and cerebral infarction without residual deficits; Z85.528 Personal history of other malignant neoplasm of kidney; Z87.01 Personal history of pneumonia (recurrent); Z90.49 Acquired absence of other specified parts of digestive tract; Z87.891 Personal history of nicotine dependence; Z90.89 Acquired absence of other organs; Z88.0 Allergy status to penicillin; Z88.1 Allergy status to other antibiotic agents; Z88.2 Allergy status to sulfonamides; Z79.899 Other long term (current) drug therapy
CPT/HCPCS: 71046; 80053; 83880; 84484; 85025; 93005; 93010; 94640; 99284-25

== ENCOUNTER 2019-06-28 00:33 | Emergency (ER) | payer MEDICARE, OTHER ==
[~2019-06-28] VITALS: Ht 190.5 cm; Wt 106.6 kg
[~2019-06-28 00:33] MED LIST changes: +CHLORTHALIDONE25 MG PO; +GLIMEPIRIDE4 MG PO; +IRON325 M1 PO; +LIDOCAINE HCL100 ML MT; +MELATONIN5 M2 PO; +ZANTAC150 MG PO; +ZOLOFT50 MG PO
--- OUTSIDE RECORDS SUMMARY | 2019-06-28 00:36 | XMS ---
PreManage Notification: ANDREE DUNAWAY Security Internal Specialist Events No recent Security Events currently on file CRITERIA MET - [facility] Guidelines - PDMP CARE PROVIDERS Name Unknown [facility] Facility Current PHONE: [phone] THEA HALL Internal Medicine 05/08/2019-Current PHONE: Unknown Brain Rey MD Current PHONE: Unknown FIDENCIO REY Primary Care Current PHONE: Unknown BROCK FARRELL Primary Care [facility] [place] [facility] [place] PHONE: Unknown [facility] PHONE: Unknown Loi has no Care Guidelines for this patient. Care History Medical/Surgical 05/08/2019 [facility] - Patient is currently established with [facility]. If patient is seen in the ED during business hours. Please contact CHWs at [facility]. Care Recommendation: This patient has had 5 or more Emergency Department visits in the last 12 months.\T\nbsp; Patient requires education on the scope and purpose of the ED as an acute care provider not a Primary Care Provider and should not be utilized for chronic conditions.\T\nbsp; These are guidelines and the provider should exercise clinical judgment when providing care. E.D. VISIT COUNT (12 MO.) 4 [facility]. TOTAL 4 NOTE: Visits indicate total known visits. ED/UCC VISIT TRACKING (12 MO.) 06/28/2019 00:34 [facility] [place] TYPE: Emergency COMPLAINT: - RIGHT ELBOW PAIN/NON INJURY 05/06/2019 19:21 [facility] [place] TYPE: Emergency COMPLAINT: - WEAKNESS 05/05/2019 11:05 [facility] [place] TYPE: Emergency COMPLAINT: - CHEST DISCOMFORT,RT EAR PAIN DIAGNOSES: - Unspecified bacterial pneumonia - Allergy status to other antibiotic agents status - Allergy status to penicillin - Personal history of nicotine dependence - Personal history of other malignant neoplasm of kidney - Heart failure, unspecified - Personal history of transient ischemic attack (TIA), and cerebral infarction without residual deficits - Acquired absence of other organs - Personal history of pneumonia (recurrent) - Acquired absence of other specified parts of digestive tract - Allergy status to sulfonamides status - Cough - Presence of coronary angioplasty implant and graft - Hypertensive heart disease with heart failure - Other penitentiary (current) drug therapy 08/02/2018 20:49 [facility] [place] TYPE: Emergency COMPLAINT: - SOB INPATIENT VISIT TRACKING (12 MO.) 05/06/2019 21:20 [facility] [place] TYPE: Medical Surgical COMPLAINT: - PHNEUMONIA DIAGNOSES: - half-way (current) use of antithrombotics/antiplatelets - Allergy status to other antibiotic agents status - Personal history of other malignant neoplasm of kidney - Atherosclerotic heart disease of [place] coronary artery without angina pectoris - Obstructive sleep apnea (adult) (pediatric) - Other termite control representative (current) drug therapy - Chronic pain syndrome - Chronic diastolic (congestive) heart failure - Personal history of transient ischemic attack (TIA), and cerebral infarction without residual deficits - Benign prostatic hyperplasia without lower urinary tract symptoms - assistant terminal manager (current) use of oral hypoglycemic drugs - Pain in unspecified joint - Allergy status to penicillin - Hyperlipidemia, unspecified - Type 2 diabetes mellitus without complications - Hypertensive heart disease with heart failure - Psychophysiologic insomnia - Dehydration - Pneumonia due to Streptococcus pneumoniae - Unspecified mood [affective] disorder - Allergy status to sulfonamides status - Chronic atrial fibrillation - Do not resuscitate - Coronary angioplasty status - Pneumonia due to other specified infectious organisms 08/02/2018 23:05 [facility] [place] TYPE: Medical Surgical COMPLAINT: - PNEUMONIA DIAGNOSES: - Disorientation, unspecified - Other termite control representative (current) drug therapy - Hypertensive heart and chronic kidney disease with heart failure and stage 1 through stage 4 chronic kidney disease, or unspecified chronic kidney disease - Type 2 diabetes mellitus with diabetic chronic kidney disease - Allergy status to other antibiotic agents status - Chronic diastolic (congestive) heart failure - Do not resuscitate - Gastro-esophageal reflux disease without esophagitis - assistant terminal manager (current) use of oral hypoglycemic drugs - Pneumonia due to Mycoplasma pneumoniae - Acquired absence of kidney - Obstructive sleep apnea (adult) (pediatric) - Encounter for immunization - Acute and chronic respiratory failure with hypoxia - Allergy status to sulfonamides status - half-way (current) use of antithrombotics/antiplatelets - Severe sepsis without septic shock - Chronic kidney disease, unspecified - Paroxysmal atrial fibrillation - Benign prostatic hyperplasia without lower urinary tract symptoms - Acute kidney failure, unspecified - Pneumonia, unspecified organism - Allergy status to penicillin - Sepsis, unspecified organism [email or web address]
[2019-06-28] MEDS ORDERED: ACID CONTROL150 MG PO (00:44)
[2019-06-28] MEDS ORDERED: MELATONIN5 M2 PO (00:47)
[2019-06-28] MEDS ORDERED: PERCOCET 5-3251 EACH PO (01:36)
[2019-06-28] MEDS ORDERED: INDOMETHACIN50 MG PO (01:36)
== END 2019-06-28 01:51 | disposition home or self-care (01) ==
LOC: ED 00:33
DX: M10.9 Gout, unspecified (principal); I11.0 Hypertensive heart disease with heart failure; I50.9 Heart failure, unspecified; Z87.01 Personal history of pneumonia (recurrent); Z86.73 Personal history of transient ischemic attack (TIA), and cerebral infarction without residual deficits; Z88.0 Allergy status to penicillin; Z88.2 Allergy status to sulfonamides; Z79.899 Other long term (current) drug therapy
CPT/HCPCS: 73080; 99283

== ENCOUNTER 2019-07-11 16:53 | Emergency (ER) | payer MEDICARE, OTHER ==
[~2019-07-11] VITALS: Ht 190.5 cm; Wt 106.6 kg
[~2019-07-11 16:53] MED LIST changes: +ACID CONTROL150 MG PO; +INDOMETHACIN50 MG PO; +PERCOCET 5-3251 EACH PO
--- OUTSIDE RECORDS SUMMARY | 2019-07-11 16:56 | XMS ---
PreManage Notification: ANDREE DUNAWAY Security Eyelet Riveter Events No recent Security Events currently on file CRITERIA MET - [facility] - Has Care Guidelines - PDMP - [facility] - 2 Visits in 30 Days CARE PROVIDERS Name Unknown [facility] Facility Current PHONE: [phone] THEA HALL Internal Medicine 05/08/2019-Current PHONE: Unknown Brain Rey MD Treatment Current PHONE: Unknown FIDENCIO REY Primary Care Current PHONE: Unknown BROCK FARRELL Primary Care [facility] PHONE: Unknown [facility] Other [facility] PHONE: Unknown Loi has no Care Guidelines for this patient. Care History Medical/Surgical 05/08/2019 [facility] - Patient is currently established with [facility]. If patient is seen in the ED during business hours. Please contact CHWs at [facility]. Care Recommendation: This patient has [...] providing care. E.D. VISIT COUNT (12 MO.) 5 [facility] TOTAL 5 NOTE: Visits indicate total known visits. ED/UCC VISIT TRACKING (12 MO.) 07/11/2019 16:53 [facility] [place] TYPE: Emergency COMPLAINT: - POST OP HIP SURGERY PAIN 06/28/2019 00:34 [facility] [place] TYPE: Emergency COMPLAINT: - RIGHT ELBOW PAIN/NON INJURY DIAGNOSES: - Personal history of transient ischemic attack (TIA), and cerebral infarction without residual deficits - Personal history of pneumonia (recurrent) - Pain in right elbow - Gout, unspecified - Hypertensive heart disease with heart failure - Allergy status to sulfonamides status - Allergy status to penicillin - Other superintendent container terminal (current) drug therapy - Heart failure, unspecified 05/06/2019 19:21 [facility] [place] TYPE: Emergency [...] heart disease with heart failure - Other superintendent container terminal (current) drug therapy 08/02/2018 20:49 [facility] [place] TYPE: Emergency COMPLAINT: - SOB INPATIENT VISIT TRACKING (12 MO.) 05/06/2019 21:20 [facility] [place] TYPE: Medical Surgical COMPLAINT: - PHNEUMONIA DIAGNOSES: - retirement (current) use of antithrombotics/antiplatelets - Allergy status to other antibiotic agents status - Personal history of other malignant neoplasm of kidney - Atherosclerotic heart disease of [place] coronary artery without angina pectoris - Obstructive sleep apnea (adult) (pediatric) - Other longterm (current) drug therapy - Chronic pain syndrome - Chronic diastolic (congestive) heart failure - Personal history of transient ischemic attack (TIA), and cerebral infarction without residual deficits - Benign prostatic hyperplasia without lower urinary tract symptoms - retirement (current) use of oral hypoglycemic drugs - [...] PNEUMONIA DIAGNOSES: - Disorientation, unspecified - Other superintendent container terminal (current) drug therapy - Hypertensive heart and chronic kidney disease with heart failure and stage 1 through stage 4 chronic kidney disease, or unspecified chronic kidney disease - Type 2 diabetes mellitus with diabetic chronic kidney disease - Allergy status to other antibiotic agents status - Chronic diastolic (congestive) heart failure - Do not resuscitate - Gastro-esophageal reflux disease without esophagitis - retirement (current) use of oral hypoglycemic drugs - Pneumonia due to Mycoplasma pneumoniae - Acquired absence of kidney - Obstructive sleep apnea (adult) (pediatric) - Encounter for immunization - Acute and chronic respiratory failure with hypoxia - Allergy status to sulfonamides status - adjunct faculty for medical terminology (current) use of antithrombotics/antiplatelets - Severe sepsis without septic shock - Chronic kidney disease, unspecified - Paroxysmal atrial fibrillation - Benign prostatic hyperplasia without lower urinary tract symptoms - Acute kidney failure, unspecified - Pneumonia, unspecified organism - Allergy status to penicillin - Sepsis, unspecified organism [email or web address]
[2019-07-11] MEDS ORDERED: ALLOPURINOL300 MG PO (17:05)
== END 2019-07-11 18:04 | disposition home or self-care (01) ==
LOC: ED 16:53
DX: M25.551 Pain in right hip (principal); I11.0 Hypertensive heart disease with heart failure; I50.9 Heart failure, unspecified; Z95.5 Presence of coronary angioplasty implant and graft; Z87.442 Personal history of urinary calculi; Z86.73 Personal history of transient ischemic attack (TIA), and cerebral infarction without residual deficits; Z87.01 Personal history of pneumonia (recurrent); Z88.0 Allergy status to penicillin; Z88.1 Allergy status to other antibiotic agents; Z88.2 Allergy status to sulfonamides; Z79.899 Other long term (current) drug therapy; Z85.528 Personal history of other malignant neoplasm of kidney
CPT/HCPCS: 73502; 99283

== ENCOUNTER 2022-03-19 13:13 | Emergency (ER) | payer MEDICARE, OTHER ==
[~2022-03-19] VITALS: Ht 190.5 cm; Wt 93.4 kg
[~2022-03-19 13:13] MED LIST changes: +ALLOPURINOL300 MG PO
[2022-03-19] MEDS ORDERED: DOXYCYCLINE HY100 MG PO (18:34)
[2022-03-20] MEDS ORDERED: CYMBALTA30 MG PO (00:51)
[2022-03-20] MEDS ORDERED: FAMOTIDINE20 MG PO (00:53)
[2022-03-20] MEDS ORDERED: FLOMAX0.4 MG PO (00:54)
[2022-03-20] MEDS ORDERED: NORVASC5 MG PO (00:54)
[2022-03-20] MEDS ORDERED: OZEMPIC1 MG/0.71 SUB-Q (00:54)
[2022-03-20] MEDS ORDERED: ARTHRITIS PAIN50 GM TOP (00:55)
[2022-03-20] MEDS ORDERED: AZELASTINE137 MCG/0. NAS (00:56)
--- NOTE | 2022-03-22 08:55 | EKG ---
[facility] [address] [place] [address] Signed Atrial fibrillation Right axis deviation Pulmonary disease pattern Abnormal ECG When compared with ECG of 05-MAY-2019 12:10, No significant change was found Confirmed by HENRY SHRESTHA MD ([id number]) on 03/22/2022 8:55:20 AM Electronically Signed By: HENRY SHRESTHA MD 03/22/22 0855 PATIENT NAME: ANDREE DUNAWAY Electrocardiogram DATE OF : 41 PHYSICIAN: HENRY SHRESTHA MD REPORT #: [id number] REPORT IS CONFIDENTIAL AND NOT TO BE RELEASED WITHOUT AUTHORIZATION
== END 2022-03-19 18:48 | disposition home or self-care (01) ==
LOC: ED 13:13
DX: J20.9 Acute bronchitis, unspecified (principal); I11.0 Hypertensive heart disease with heart failure; I50.9 Heart failure, unspecified; Z20.822 Contact with and (suspected) exposure to COVID-19; Z86.73 Personal history of transient ischemic attack (TIA), and cerebral infarction without residual deficits; Z85.528 Personal history of other malignant neoplasm of kidney; M19.90 Unspecified osteoarthritis, unspecified site; Z88.0 Allergy status to penicillin; Z88.2 Allergy status to sulfonamides; Z88.1 Allergy status to other antibiotic agents; Z79.899 Other long term (current) drug therapy; Z79.01 Long term (current) use of anticoagulants; Z79.84 Long term (current) use of oral hypoglycemic drugs
CPT/HCPCS: 36415; 71045; 80053; 83735; 83880; 84484; 85025; 85060; 87502; 93005; 93010; 94640; 99285-25; A9270; C9803; U0003

== ENCOUNTER 2022-06-09 13:55 | Emergency (ER) | payer MEDICARE, OTHER ==
[~2022-06-09] VITALS: Ht 190.5 cm; Wt 93.4 kg
[~2022-06-09 13:55] MED LIST changes: +ARTHRITIS PAIN50 GM TOP; +AZELASTINE137 MCG/0. NAS; +CYMBALTA30 MG PO; +FAMOTIDINE20 MG PO; +FLOMAX0.4 MG PO; +NORVASC5 MG PO; +OZEMPIC1 MG/0.71 SUB-Q
[2022-06-09] MEDS ORDERED: HYDROCODON-ACE1 EA10 PO (16:44)
== END 2022-06-09 17:42 | disposition home or self-care (01) ==
LOC: ED 13:55
DX: S82.831A Other fracture of upper and lower end of right fibula, initial encounter for closed fracture (principal); I11.0 Hypertensive heart disease with heart failure; I50.9 Heart failure, unspecified; Z95.5 Presence of coronary angioplasty implant and graft; Z86.73 Personal history of transient ischemic attack (TIA), and cerebral infarction without residual deficits; Z88.1 Allergy status to other antibiotic agents; Z88.0 Allergy status to penicillin; Z88.2 Allergy status to sulfonamides; Z79.899 Other long term (current) drug therapy; Z79.01 Long term (current) use of anticoagulants; W19.XXXA Unspecified fall, initial encounter
CPT/HCPCS: 73560; 99283-25

== ENCOUNTER 2022-06-17 10:03 | Inpatient (IN) | payer OTHER ==
[~2022-06-17] VITALS: Ht 190.5 cm; Wt 97.0 kg
[2022-06-17] MEDS ORDERED: TOPIRAMATE25 MG PO (15:45)
[2022-06-17] MEDS ORDERED: OXYBUTYNIN CHLOR5 M1 PO (15:45)
[2022-06-17] MEDS ORDERED: AMLODIPINE BESYL5 MG PO (15:46)
[2022-06-18] MEDS ORDERED: HYDRALAZINE HCL50 MG PO (11:31)
[2022-06-21] MEDS ORDERED: LEVOFLOXACIN750 MG PO (11:12)
[2022-06-21] MEDS ORDERED: HYDRALAZINE HCL25 MG PO (11:13)
== END 2022-06-22 09:00 | DRG 194 ==
LOC: ED 10:03 → MS 14:39
PROVIDERS: ADMIT Internal Medicine; ATTEND Internal Medicine
DX: J13 Pneumonia due to Streptococcus pneumoniae (principal); I48.21 Permanent atrial fibrillation; I50.32 Chronic diastolic (congestive) heart failure; R63.4 Abnormal weight loss; E87.6 Hypokalemia; D69.6 Thrombocytopenia, unspecified; R91.1 Solitary pulmonary nodule; R32 Unspecified urinary incontinence; N40.1 Benign prostatic hyperplasia with lower urinary tract symptoms; E78.00 Pure hypercholesterolemia, unspecified; Z66 Do not resuscitate; E11.9 Type 2 diabetes mellitus without complications; G89.4 Chronic pain syndrome; I11.0 Hypertensive heart disease with heart failure; M10.9 Gout, unspecified; I25.10 Atherosclerotic heart disease of native coronary artery without angina pectoris; G47.33 Obstructive sleep apnea (adult) (pediatric); Z20.822 Contact with and (suspected) exposure to COVID-19; Z85.528 Personal history of other malignant neoplasm of kidney; Z96.651 Presence of right artificial knee joint; Z90.49 Acquired absence of other specified parts of digestive tract; Z90.5 Acquired absence of kidney; Z98.890 Other specified postprocedural states; Z96.641 Presence of right artificial hip joint; Z88.0 Allergy status to penicillin; Z88.2 Allergy status to sulfonamides; Z68.26 Body mass index [BMI] 26.0-26.9, adult; Z95.5 Presence of coronary angioplasty implant and graft; Z86.73 Personal history of transient ischemic attack (TIA), and cerebral infarction without residual deficits; Z88.1 Allergy status to other antibiotic agents; Z79.891 Long term (current) use of opiate analgesic; Z79.899 Other long term (current) drug therapy; Z79.01 Long term (current) use of anticoagulants
CPT/HCPCS: 36415; 51798; 70450; 71046; 71250; 80053; 81001; 83036; 83735; 84443; 85025; 97110; 97116; 97162; 97165; 97535; 99285-25; A9270; C9803; J1815; J1956; J3475; J3480; J7120; U0003

== ENCOUNTER 2022-10-17 18:10 | Observation (INO) | payer OTHER, MEDICARE ==
[~2022-10-17] VITALS: Ht 190.5 cm; Wt 100.0 kg
[~2022-10-17 18:10] MED LIST changes: +AMLODIPINE BESYL5 MG PO; +HYDRALAZINE HCL50 MG PO; +LEVOFLOXACIN750 MG PO; +OXYBUTYNIN CHLOR5 M1 PO; +TOPIRAMATE25 MG PO
[2022-10-17] MEDS ORDERED: HYDRALAZINE HCL50 MG PO (22:49)
[2022-10-18] MEDS ORDERED: AMLODIPINE BESYL5 MG PO (11:01)
[2022-10-18] MEDS ORDERED: TOPIRAMATE25 MG PO (11:06)
[2022-10-18] MEDS ORDERED: OXYCODONE HCL5 MG PO (12:38)
--- NOTE | 2022-10-19 21:49 | EKG ---
[facility] [address] [place] [address] Signed Atrial fibrillation with slow ventricular response Abnormal ECG When compared with ECG of 19-MAR-2022 13:44, QRS axis shifted left Confirmed by Luisito Almonte MD () on 10/19/2022 9:49:31 PM Electronically Signed By: LUISITO ALMONTE MD 10/19/22 2149 PATIENT NAME: EMELYNANDREE Electrocardiogram DATE OF : 41 PHYSICIAN: LUISITO ALMONTE MD REPORT #: [id number] REPORT IS CONFIDENTIAL AND NOT TO BE RELEASED WITHOUT AUTHORIZATION
[2022-10-21] MEDS ORDERED: METOPROLOL SUCC25 MG PO (08:26)
== END 2022-10-21 09:00 | disposition home or self-care (01) ==
LOC: ED 18:10 → MS 18:14
PROVIDERS: ADMIT Internal Medicine; ATTEND Internal Medicine
DX: E86.0 Dehydration (principal); I95.1 Orthostatic hypotension; E87.6 Hypokalemia; M25.531 Pain in right wrist; Z91.81 History of falling; I48.20 Chronic atrial fibrillation, unspecified; I10 Essential (primary) hypertension; N40.0 Benign prostatic hyperplasia without lower urinary tract symptoms; E11.9 Type 2 diabetes mellitus without complications; Z88.0 Allergy status to penicillin; Z88.2 Allergy status to sulfonamides; Z88.1 Allergy status to other antibiotic agents; Z20.822 Contact with and (suspected) exposure to COVID-19
CPT/HCPCS: 36415; 70450; 72125; 73110; 80048; 80053; 81001; 83036; 83735; 84550; 85025; 85651; 87502; 93005; 93010; 96360; 96361; 96374; 97110; 97163; 97166; 97535; 99285-25; A9270; C9803; G0378; J1815; J1885; J2270; J3475; J3480; J7120; J7121; U0003

== ENCOUNTER 2023-03-23 16:12 | Emergency (ER) | payer MEDICARE, OTHER ==
[~2023-03-23] VITALS: Ht 190.5 cm; Wt 95.2 kg
[~2023-03-23 16:12] MED LIST changes: +LEVOFLOXACIN500 MG PO; +METOPROLOL SUCC25 MG PO
--- OUTSIDE RECORDS SUMMARY | 2023-03-23 16:14 | XMS ---
PreManage Notification: ANDREE DUNAWAY Security Accounts Payable Specialist Events No recent Security Events currently on file CRITERIA MET - [facility] - 2 Visits in 30 Days CARE PROVIDERS JOVANY JALLOH Emergency Medicine Current PHONE: [phone] COLLINS WEINBERG Internal Medicine [facility]: [phone] [facility] Current PHONE: Unknown THEA HALL Internal Medicine Current PHONE: Unknown Loi has no Care Guidelines for this patient. Care History Medical/Surgical 05/08/2019 [facility] - Patient is currently established with [facility]. If patient is seen in the ED during business hours. Please contact CHWs at [facility]. Care Recommendation: This patient has had 5 [...] providing care. E.D. VISIT COUNT (12 MO.) 1 [facility] [address] [facility] TOTAL 6 NOTE: Visits indicate total known visits. ED/UCC VISIT TRACKING (12 MO.) 03/23/2023 16:13 [facility] TYPE: Emergency COMPLAINT: - FALL 03/12/2023 14:50 [facility] [place] TYPE: Emergency COMPLAINT: - URINE PROBLEM DIAGNOSES: - Allergy status to other antibiotic agents - Allergy status to penicillin - Allergy status to sulfonamides - Heart failure, unspecified - Hypertensive heart disease with heart failure - intermediate (current) use of anticoagulants - Other intermission coordinator (current) drug therapy - Presence of coronary angioplasty implant and graft - Type 2 diabetes mellitus without complications - Urinary tract infection, site not specified 11/27/2022 15:20 [facility] TYPE: Emergency DIAGNOSES: - Dyspnea, unspecified - Lobar pneumonia, unspecified organism - Pneumonia, unspecified organism - Pneumonitis due to inhalation of food and vomit - Pneumonitis due to inhalation of food and vomit - Shortness of Breath 10/17/2022 18:13 [facility] [place] TYPE: Emergency COMPLAINT: - CONFUSED AND WEAK 06/17/2022 10:04 [facility] [place] TYPE: Emergency COMPLAINT: - WEAKNESS 06/09/2022 13:56 [facility] [place] TYPE: Emergency COMPLAINT: - FELL, BOTH KNEE PAIN DIAGNOSES: - Allergy status to other antibiotic agents - Allergy status to penicillin - Allergy status to sulfonamides - Heart failure, unspecified - Hypertensive heart disease with heart failure - intermediate (current) use of anticoagulants - Other fracture of upper and lower end of right fibula, initial encounter for closed fracture - Other halfway (current) drug therapy - Pain in left knee - Personal history of transient ischemic attack (TIA), and cerebral infarction without residual deficits - Presence of coronary angioplasty implant and graft - Unspecified fall, initial encounter INPATIENT VISIT TRACKING (12 MO.) 11/27/2022 15:20 [facility] [place] TYPE: Surgical Services DIAGNOSES: - Dyspnea, unspecified - Lobar pneumonia, unspecified organism - Pain due to internal orthopedic prosthetic devices, implants and grafts, initial encounter - Pneumonia, unspecified organism - Pneumonitis due to inhalation of food and vomit - Presence of right artificial knee joint - Unspecified atrial fibrillation 10/17/2022 18:14 [facility] [place] TYPE: Observation COMPLAINT: - DEHYDRATION DIAGNOSES: - Allergy status to other antibiotic agents - Allergy status to penicillin - Allergy status to sulfonamides - Benign prostatic hyperplasia without lower urinary tract symptoms - Chronic atrial fibrillation, unspecified - Contact with and (suspected) exposure to COVID-19 - Dehydration - Dehydration - Essential (primary) hypertension - History of falling - Hypokalemia - Orthostatic hypotension - Orthostatic hypotension - Pain in right wrist - Type 2 diabetes mellitus without complications 06/17/2022 14:39 [facility] [place] TYPE: Medical Surgical COMPLAINT: - PNEUMONIA DIAGNOSES: - Abnormal weight loss - Abnormal weight loss - Acquired absence of kidney - Acquired absence of kidney - Acquired absence of other specified parts of digestive tract - Acquired absence of other specified parts of digestive tract - Allergy status to other antibiotic agents - Allergy status to other antibiotic agents - Allergy status to penicillin - Allergy status to penicillin - Allergy status to sulfonamides - Allergy status to sulfonamides - Atherosclerotic heart disease of [place] coronary artery without angina pectoris - Atherosclerotic heart disease of [place] coronary artery without angina pectoris - Benign prostatic hyperplasia with lower urinary tract symptoms - Benign prostatic hyperplasia with lower urinary tract symptoms - Body mass index [BMI] 26.0-26.9, adult - Body mass index [BMI] 26.0-26.9, adult - Chronic diastolic (congestive) heart failure - Chronic diastolic (congestive) heart failure - Chronic pain syndrome - Chronic pain syndrome - Contact with and (suspected) exposure to COVID-19 - Contact with and (suspected) exposure to COVID-19 - Do not resuscitate - Do not resuscitate - Gout, unspecified - Gout, unspecified - Hypertensive heart disease with heart failure - Hypertensive heart disease with heart failure - Hypokalemia - Hypokalemia - intermediate (current) use of anticoagulants - terminal make up operator (current) use of anticoagulants - intermediate (current) use of opiate analgesic - terminal make up operator (current) use of opiate analgesic - Obstructive sleep apnea (adult) (pediatric) - Obstructive sleep apnea (adult) (pediatric) - Other intermission coordinator (current) drug therapy - Other halfway (current) drug therapy - Other specified postprocedural states - Other specified postprocedural states - Permanent atrial fibrillation - Permanent atrial fibrillation - Personal history of other malignant neoplasm of kidney - Personal history of other malignant neoplasm of kidney - Personal history of transient ischemic attack (TIA), and cerebral infarction without residual deficits - Personal history of transient ischemic attack (TIA), and cerebral infarction without residual deficits - Pneumonia due to Streptococcus pneumoniae - Pneumonia due to Streptococcus pneumoniae - Pneumonia, unspecified organism - Presence of coronary angioplasty implant and graft - Presence of coronary angioplasty implant and graft - Presence of right artificial hip joint - Presence of right artificial hip joint - Presence of right artificial knee joint - Presence of right artificial knee joint - Pure hypercholesterolemia, unspecified - Pure hypercholesterolemia, unspecified - Solitary pulmonary nodule - Solitary pulmonary nodule - Thrombocytopenia, unspecified - Thrombocytopenia, unspecified - Type 2 diabetes mellitus without complications - Type 2 diabetes mellitus without complications - Unspecified urinary incontinence - Unspecified urinary incontinence [email or web address]
[2023-03-23 18:10] VITALS: BP 141/87
== END 2023-03-23 18:10 | disposition home or self-care (01) ==
LOC: ED 16:12
DX: M25.461 Effusion, right knee (principal); W19.XXXA Unspecified fall, initial encounter; I13.2 Hypertensive heart and chronic kidney disease with heart failure and with stage 5 chronic kidney disease, or end stage renal disease; E11.22 Type 2 diabetes mellitus with diabetic chronic kidney disease; N18.6 End stage renal disease; I50.9 Heart failure, unspecified; I25.10 Atherosclerotic heart disease of native coronary artery without angina pectoris; Z95.5 Presence of coronary angioplasty implant and graft; Z79.01 Long term (current) use of anticoagulants; Z79.899 Other long term (current) drug therapy; Z88.0 Allergy status to penicillin; Z88.2 Allergy status to sulfonamides; Z88.1 Allergy status to other antibiotic agents
CPT/HCPCS: 73560; 73562